=== PATIENT | female | born 1975 | race Caucasian/White ===

== ENCOUNTER 2016-06-01 11:03 | Day surgery (SDC) | payer BC ==
[~2016-06-01] VITALS: Ht 160 cm; Wt 77.1 kg
[~2016-06-01 11:03] MED LIST: ADVIL,NUPRIN,M200 MG PO; DIOVAN80 MG PO; IRON325 M1 PO; NOLVADEX20 MG PO; OMEPRAZOLE40 M1 PO
[2016-06-01 11:50] VITALS: BP 120/79
[2016-06-01 14:25] VITALS: BP 135/87
[2016-06-01 14:49] VITALS: BP 124/73
== END 2016-06-01 15:15 | disposition home or self-care (01) ==
LOC: SDC 11:03
PROC: 0UDB8ZX Extraction of Endometrium, Via Natural or Artificial Opening Endoscopic, Diagnostic (ICD-10-PCS; principal; 2016-06-01)
DX: D25.9 Leiomyoma of uterus, unspecified (principal); N85.8 Other specified noninflammatory disorders of uterus; N85.6 Intrauterine synechiae; N93.8 Other specified abnormal uterine and vaginal bleeding; Z85.3 Personal history of malignant neoplasm of breast; R10.2 Pelvic and perineal pain; I10 Essential (primary) hypertension; F32.9 Major depressive disorder, single episode, unspecified; F41.9 Anxiety disorder, unspecified
CPT/HCPCS: 88305; J0131; J0690; J1100; J2250; J2405; J3010

== ENCOUNTER 2017-02-02 21:31 | Inpatient (IN) | payer BC ==
[~2017-02-02] VITALS: Ht 160 cm; Wt 79.1 kg
[~2017-02-02 21:31] MED LIST changes: +ROBAXIN500 MG PO
[2017-02-03 09:20] VITALS: BP 137/83
[2017-02-03 14:34] VITALS: BP 119/61
[2017-02-03 17:48] LABS: HEMATOCRIT 37.8 % (36.0-46.0); MCH 30.7 PG (29.0-34.0); MCHC 33.9 G/DL (30.0-36.0); MCV 90.6 FL (83-99); MEAN PLAT.VOLUME 9.6 uM^3 (9.5-12.4); PLATELET COUNT 202 K/uL (156-360); RBC DIS.WIDTH-CV 11.8 % (11.8-14.6); RBC DIS.WIDTH-SD 38.9 % (39-53); RED BLOOD COUNT 4.17 M/uL (3.80-5.20)
[2017-02-03 18:12] LABS: ANION GAP 8 MEQ/L (2-14); CHLORIDE 106 MEQ/L (99-109); GFR ESTIMATE (CALCULATED) > 59 mL/min/; GLUCOSE 161 mg/dL (70-99); SAMPLE HEMOLYSIS CHECK 0; SAMPLE ICTERIC CHECK 0; SAMPLE LIPEMIA CHECK 0; SODIUM 136 MEQ/L (136-147); UREA NITROGEN (BUN) 10 mg/dL (9-23)
[2017-02-03 19:29] VITALS: BP 131/74
[2017-02-03 23:28] VITALS: BP 133/79
[2017-02-04 03:27] VITALS: BP 133/71
[2017-02-04 08:09] LABS: HEMATOCRIT 36.9 % (36.0-46.0); MCHC 33.1 G/DL (30.0-36.0); MCV 90.7 FL (83-99); PLATELET COUNT 207 K/uL (156-360); RBC DIS.WIDTH-CV 11.5 % (11.8-14.6); RBC DIS.WIDTH-SD 38.4 % (39-53); RED BLOOD COUNT 4.07 M/uL (3.80-5.20); WHITE BLOOD COUNT 9.9 K/uL (4.1-10.2)
[2017-02-04 08:44] VITALS: BP 131/70
[2017-02-04 08:46] LABS: ANION GAP 6 MEQ/L (2-14); CHLORIDE 104 MEQ/L (99-109); GFR ESTIMATE (CALCULATED) > 59 mL/min/; POTASSIUM 4.1 MEQ/L (3.7-5.4); SAMPLE HEMOLYSIS CHECK 0; SAMPLE ICTERIC CHECK 0; SAMPLE LIPEMIA CHECK 0; SODIUM 136 MEQ/L (136-147); UREA NITROGEN (BUN) 5 mg/dL (9-23)
[2017-02-04 08:47] LABS: GLUCOSE 99 mg/dL (70-99)
[2017-02-04] MEDS ORDERED: TRAMADOL HCL50 MG PO (09:19)
[2017-02-04 11:24] VITALS: BP 146/91
== END 2017-02-04 12:43 | disposition home or self-care (01) | DRG 743 ==
LOC: ENRESERV 21:31 → 2SOUTH 02-03 08:40 → ENRESERV 02-03 12:45 → 2SOUTH 02-03 13:24 → 2EASTP 02-03 14:26
PROVIDERS: Obstetrics & Gynecology Gynecologic Oncology
DX: D25.9 Leiomyoma of uterus, unspecified (principal); N80.9 Endometriosis, unspecified; N93.8 Other specified abnormal uterine and vaginal bleeding; D23.9 Other benign neoplasm of skin, unspecified; I10 Essential (primary) hypertension; D64.9 Anemia, unspecified; F32.9 Major depressive disorder, single episode, unspecified; F41.0 Panic disorder [episodic paroxysmal anxiety]; J45.909 Unspecified asthma, uncomplicated; N60.19 Diffuse cystic mastopathy of unspecified breast; Z79.899 Other long term (current) drug therapy; Z92.3 Personal history of irradiation; Z85.3 Personal history of malignant neoplasm of breast; Z90.11 Acquired absence of right breast and nipple; Z80.3 Family history of malignant neoplasm of breast; Z82.3 Family history of stroke; Z82.49 Family history of ischemic heart disease and other diseases of the circulatory system; Z82.5 Family history of asthma and other chronic lower respiratory diseases; Z82.61 Family history of arthritis; Z83.3 Family history of diabetes mellitus
CPT/HCPCS: 80048; 85027; 88305; 88307; J0131; J0330; J0690; J1100; J1170; J1644; J1885; J2250; J2405; J2765; J3010